=== PATIENT | male | born 1990 | race Caucasian/White ===

== ENCOUNTER 2018-03-10 09:43 | Emergency (ER) | payer SELFPAY ==
[2018-03-10] MEDS ORDERED: Albuterol/Ipratropium 3.0-0.5 MG/3 ML Neb Soln NEB ONE ×2 (09:58→10:34)
[2018-03-10] MEDS ORDERED: methylPREDNISolone Sodium Succinate 125 MG/2 ML SDV IM ONE (10:08)
--- NOTE | 2018-03-10 10:14 | EDM.PDOC ---
ED HPI GENERAL MEDICAL PROBLEM - General Chief Complaint: Respiratory Problem Stated Complaint: TROUBLE BREATHING Time Seen by Provider: 03/10/18 10:08 Source of Information: Reports: Patient History Limitations: Reports: No Limitations - History of Present Illness INITIAL COMMENTS - FREE TEXT/NARRATIVE: HISTORY AND PHYSICAL: []27-year-old male presents with asthma exacerbation History of Present Illness: []He does not having any of his inhalers Review of Systems: As per history of present illness and below otherwise all systems reviewed and negative. Past medical history: As per history of present illness and as reviewed below otherwise noncontributory. Surgical history: As per history of present illness and as reviewed below otherwise noncontributory. Social history: No reported history of drug or alcohol abuse. Family history: As per history of present illness and as reviewed below otherwise noncontributory. Physical exam: HEENT: Atraumatic, normocehpalic, pupils reactive, negative for conjunctival pallor or scleral icterus, mucous membranes moist, throat clear, neck supple, nontender, trachea midline. Lungs: Clear to auscultation, breath sounds equal bilaterally, chest non tender. Heart: S1S2, regular, negative for clicks, rubs, or JVD. Abdomen: Soft, nondistended, nontender. Negative for masses or hepatossplenmegaly. Negative for costovertebral tenderness. Pelvis: Stable nontender. Genitourinary: Deferred. Rectal: Deferred Extremities: Atraumatic, negative for cords or calf pain. Neurovascular unremarkable. Neuro: Awake, alert, oriented. Cranial nerves II through XII unremarkable. Cerebellum unremarkable. Motor and sensory unremarkable throughout. Exam nonfocal. Discussed with the patient that chest x-rays clear, asthma exacerbation Diagnostics: []Chest x-ray Therapeutics: []DuoNeb 2 Solu-Medrol IM Impression: []Asthma exacerbation Plan: []Discharged home Follow up with your primary care provider in 3 days Medrol Dosepak Combivent inhaler Return to the emergency room as directed and discussed Definitive disposition and diagnosis as appropriate pending reevaluation and review of above. Onset: Today, Sudden - Related Data Allergies Allergy/AdvReac Type Severity Reaction Status Date / Time amoxicillin Allergy Rash Verified 03/10/18 09:48 Home Meds: Home Meds Ipratropium/Albuterol Sulfate [Combivent Respimat Inhal [place]] 4 gm IH QID #1 aer.w.adap 03/10/18 [Rx] methylPREDNISolone [Medrol] 4 mg PO ASDIRECTED #1 dosepk 03/10/18 [Rx] Past Medical History Respiratory History: Reports: Asthma - Infectious Disease History Infectious Disease History: Reports: Herpes - Past Surgical History Neurological Surgical History: Reports: Other (See Below) Other Neurological Surgeries/Procedures: craniotomy Dermatological Surgical History: Reports: Other (See Below) Social & Family History - Family History Family Medical History: Noncontributory - Tobacco Use Smoking Status *Q: Former Smoker Used Tobacco, but Quit: Yes Month/Year Tobacco Last Used: feb 2018 - Caffeine Use Caffeine Use: Reports: None - Recreational Drug Use Recreational Drug Use: Yes Drug Use in Last 12 Months: Yes Recreational Drug Type: Reports: Marijuana/Hashish Recreational Drug Use Frequency: Not Used In Over 2 Months ED ROS GENERAL - Review of Systems Review Of Systems: ROS reveals no pertinent complaints other than HPI. ED EXAM, GENERAL - Physical Exam Exam: See Below (see dictation) Course - Vital Signs Last Recorded V/S: Last Vital Signs Temp 36.5 C 03/10/18 09:46 Pulse 72 03/10/18 09:46 Resp 22 H 03/10/18 09:46 BP 124/74 03/10/18 09:46 Pulse Ox 98 03/10/18 09:46 - Orders/Labs/Meds Orders: Active Orders 24 hr Category Date Time Status RT Aerosol Therapy [RC] ASDIRECTED Care 03/10/18 09:58 Active RT Aerosol Therapy [RC] ASDIRECTED Care 03/10/18 10:34 Active Chest 2V [CR] Stat Exams 03/10/18 10:01 Taken Meds: Medications Discontinued Medications Generic Name Dose Route Start Last Admin Trade Name Freq PRN Reason Stop Dose Admin Albuterol/Ipratropium 3 ml 03/10/18 09:58 03/10/18 10:04 Duoneb 3.0-0.5 Mg/3 Ml NEB 03/10/18 09:59 3 ml ONETIME ONE Administration Albuterol/Ipratropium 3 ml 03/10/18 10:34 03/10/18 10:40 Duoneb 3.0-0.5 Mg/3 Ml NEB 03/10/18 10:35 3 ml ONETIME ONE Administration Methylprednisolone Sodium Succinate 125 mg 03/10/18 10:08 03/10/18 10:13 Solu-Medrol IM 03/10/18 10:09 125 mg ONETIME ONE Administration Departure - Departure Time of Disposition: 10:57 Disposition: Home, Self-Care 01 Condition: Good Clinical Impression: Exacerbation of asthma Qualifiers: Asthma severity: moderate Asthma persistence: unspecified Qualified Code(s): J45.901 - Unspecified asthma with (acute) exacerbation - Discharge Information *PRESCRIPTION DRUG MONITORING PROGRAM REVIEWED*: Not Applicable *COPY OF PRESCRIPTION DRUG MONITORING REPORT IN PATIENT RICARDO: Not Applicable Prescriptions: Ipratropium/Albuterol Sulfate [Combivent Respimat Inhal [place]] 4 gm IH QID #1 aer.w.adap methylPREDNISolone [Medrol] 4 mg PO ASDIRECTED #1 dosepk Forms: ED Department Discharge Additional Instructions: The following information is given to patients seen in the emergency department who are being discharged to home. This information is to outline your options for follow-up care. We provide all patients seen in our emergency department with a follow-up referral. The need for follow-up, as well as the timing and circumstances, are variable depending upon the specifics of your emergency department visit. If you don't have a primary care physician on staff, we will provide you with a referral. We always advise you to contact your personal physician following an emergency department visit to inform them of the circumstance of the visit and for follow-up with them and/or the need for any referrals to a consulting specialist. The emergency department will also refer you to a specialist when appropriate. This referral assures that you have the opportunity for followup care with a specialist. All of these measure are taken in an effort to provide you with optimal care, which includes your followup. Under all circumstances we always encourage you to contact your private physician who remains a resource for coordinating your care. When calling for followup care, please make the office aware that this follow-up is from your recent emergency room visit. If for any reason you are refused follow-up, please contact the [facility] emergency department at and asked to speak to the emergency department charge nurse. Discharged home Follow up with your primary care provider in 3 days Medrol Dosepak Combivent inhaler Return to the emergency room as directed and discussed - My Orders Last 24 Hours: My Active Orders 03/10/18 10:01 Chest 2V [CR] Stat 03/10/18 10:34 RT Aerosol Therapy [RC] ASDIRECTED - Assessment/Plan Last 24 Hours: My Active Orders 03/10/18 10:01 Chest 2V [CR] Stat 03/10/18 10:34 RT Aerosol Therapy [RC] ASDIRECTED
--- NOTE | 2018-03-11 13:08 | CR ---
EXAM DATE: 03/10/18 PATIENT'S AGE: 27 Patient: AMY PERERA Facility: [place], [place] Site . Site : 1990 Study: XRay Chest [id number] 10:28:19 AM Ordering Physician: Doctor Ni Final Report: INDICATION: asthma exacerbation since last night INDICATION: Asthma exacerbation. TECHNIQUE: Chest 2 views. COMPARISON: None FINDINGS: Cardiovascular and mediastinum: Heart size and vasculature are normal in caliber and appearance. Mediastinum is within normal limits. Lungs and pleural spaces: Lungs are clear. No sign of infiltrate or mass. No sign of pleural effusion. No pneumothorax. Bones and soft tissues: No significant findings. IMPRESSION: Lungs are clear. Dictated by Toño Vinson MD @ 03/10/2018 10:34:20 AM Dictated by: Toño Vinson MD @ 03/10/2018 10:34:27 (Electronic Signature) Report Signed by Proxy. NICOLE
== END 2018-03-10 11:12 | disposition home or self-care (01) ==
LOC: MW.ED 09:43
DX: J45.901 Unspecified asthma with (acute) exacerbation (principal); Z87.891 Personal history of nicotine dependence
CPT/HCPCS: 71046; 94640; 96372; 99285; J2930; J7620-GY

== ENCOUNTER 2019-05-23 18:13 | Emergency (ER) | payer OTHER ==
--- NOTE | 2019-05-23 18:23 | EDM.PDOC ---
ED HPI GENERAL MEDICAL PROBLEM - General Chief Complaint: Upper Extremity Injury/Pain Stated Complaint: RT POINTING FINGER Time Seen by Provider: 05/23/19 18:15 - History of Present Illness INITIAL COMMENTS - FREE TEXT/NARRATIVE: HISTORY AND PHYSICAL: History of present illness: Patient is 29-year-old white male presents status post fall she injured the second digit of his right hand he also sustained a minor abrasion is up-to-date on his tetanus denies other trauma or concern patient requests x-raying about possible fracture of the second digit Review of systems: As per history of present illness and below otherwise all systems reviewed and negative. Past medical history: As per history of present illness and as reviewed below otherwise noncontributory. Surgical history: As per history of present illness and as reviewed below otherwise noncontributory. Social history: No reported history of drug or alcohol abuse. Family history: As per history of present illness and as reviewed below otherwise noncontributory. Physical exam: HEENT: Atraumatic, normocephalic, pupils reactive, negative for conjunctival pallor or scleral icterus, mucous membranes moist, throat clear, neck supple, nontender, trachea midline. Lungs: Clear to auscultation, breath sounds equal bilaterally, chest nontender. Heart: S1S2, regular, negative for clicks, rubs, or JVD. Abdomen: Soft, nondistended, nontender. Negative for masses or hepatosplenomegaly. Negative for costovertebral tenderness. Pelvis: Stable nontender. Genitourinary: Deferred. Rectal: Deferred. Extremities: Second digit right hand has minor abrasion noted on the dorsal aspect he does have tenderness and swelling in the region of the PIP joint is no gross deformity neurovascular exam in [facility] is unremarkable Neuro: Awake, alert, oriented. Cranial nerves II through XII unremarkable. Cerebellum unremarkable. Motor and sensory unremarkable throughout. Exam nonfocal. Diagnostics: X-ray right hand attention second digit Therapeutics: Aluminum/foam splint second digit Impression: #1 acute right hand injury ( second digit) Definitive disposition and diagnosis as appropriate pending reevaluation and review of above. - Related Data Allergies Allergy/AdvReac Type Severity Reaction Status Date / Time amoxicillin Allergy Rash Verified 03/10/18 09:48 Home Meds: Home Meds . [No Known Home Meds] 05/23/19 [History] Past Medical History Respiratory History: Reports: Asthma - Infectious Disease History Infectious Disease History: Reports: Herpes - Past Surgical History Neurological Surgical History: Reports: Other (See Below) Other Neurological Surgeries/Procedures: craniotomy Dermatological Surgical History: Reports: Other (See Below) Social & Family History - Family History Family Medical History: Noncontributory - Caffeine Use Caffeine Use: Reports: None Review of Systems - Review of Systems Review Of Systems: Comprehensive ROS is negative, except as noted in HPI. ED EXAM, GENERAL - Physical Exam Exam: See Below (See dictation) Course - Vital Signs Last Recorded V/S: Last Vital Signs Temp 37.1 C 05/23/19 18:18 Pulse 77 05/23/19 18:18 Resp 14 05/23/19 18:18 BP 130/64 05/23/19 18:18 Pulse Ox 99 05/23/19 18:18 Departure - Departure Time of Disposition: 18:57 Disposition: Home, Self-Care 01 Condition: Good Clinical Impression: Hand injury - Discharge Information Referrals: PCP,Not In Area [Primary Care Provider] - Forms: ED Department Discharge Additional Instructions: The following information is given to patients seen in the emergency department who are being discharged to home. This information is to outline your options for follow-up care. We provide all patients seen in our emergency department with a follow-up referral. The need for follow-up, as well as the timing and circumstances, are variable depending upon the specifics of your emergency department visit. If you don't have a primary care physician on staff, we will provide you with a referral. We always advise you to contact your personal physician following an emergency department visit to inform them of the circumstance of the visit and for follow-up with them and/or the need for any referrals to a consulting specialist. The emergency department will also refer you to a specialist when appropriate. This referral assures that you have the opportunity for followup care with a specialist. All of these measure are taken in an effort to provide you with optimal care, which includes your followup. Under all circumstances we always encourage you to contact your private physician who remains a resource for coordinating your care. When calling for followup care, please make the office aware that this follow-up is from your recent emergency room visit. If for any reason you are refused follow-up, please contact the [facility] emergency department at and asked to speak to the emergency department charge nurse. Aluminum/foam splint as directed Motrin/Tylenol as directed follow-up private medical doctor as needed as discussed and return as needed as discussed
--- NOTE | 2019-05-23 18:44 | CR ---
TECHNIQUE: Three views of the right hand. INDICATION: Fall, 2nd digit pain and swelling. FINDINGS: No acute right hand fracture, dislocation, or radiopaque foreign body. There is soft tissue swelling in the right index finger. Chronic fracture deformity 5th metacarpal shaft. Dictated by Jimbo Gillespie MD @ 05/23/2019 6:42:00 PM Dictated by: Jimbo Gillespie MD @ 05/23/2019 18:42:06 (Electronically Signed)
== END 2019-05-23 19:11 | disposition home or self-care (01) ==
LOC: MW.ED 18:13
DX: S60.511A Abrasion of right hand, initial encounter (principal); Z88.1 Allergy status to other antibiotic agents; W19.XXXA Unspecified fall, initial encounter
CPT/HCPCS: 73130-26-RT; 73130-RT; 99282; 99283-25

== ENCOUNTER 2020-08-18 20:07 | Emergency (ER) | payer OTHER ==
[2020-08-18] MEDS ORDERED: Clindamycin HCl 150 MG Cap PO ONE (20:26)
[2020-08-18] MEDS ORDERED: Lidocaine 2% Viscous Solution 15 ML Cup PO ONE (20:26)
[2020-08-18] MEDS: Benzocaine 20% Topical Spray UD MUCMEM ONE (20:36)
--- NOTE | 2020-08-18 20:37 | EDM.PDOC ---
ED HPI GENERAL MEDICAL PROBLEM - General Chief Complaint: ENT Problem Stated Complaint: TOOTH PAIN Time Seen by Provider: 08/18/20 20:19 Source of Information: Reports: Patient History Limitations: Reports: No Limitations - History of Present Illness INITIAL COMMENTS - FREE TEXT/NARRATIVE: HISTORY AND PHYSICAL: History of present illness: Patient is a 30-year-old male who presents to the emergency room with complaints of upper right posterior dental pain. He states he has had a longstanding cavity which he has been meaning to see a dentist for. Over the past few weeks he has had increased pain, last few days he is noticed some redness and tenderness along the upper gumline. Patient denies any fever, chills, headache, change in vision, syncope or near syncope. Denies any chest pain, back pain, shortness of breath or cough. Denies any GI or symptoms. Patient has been eating and drinking appropriately. Review of systems: As per history of present illness and below otherwise all systems reviewed and negative. Past medical history: As per history of present illness and as reviewed below otherwise noncontributory. Surgical history: As per history of present illness and as reviewed below otherwise noncontributory. Social history: See social history for further information Family history: As per history of present illness and as reviewed below otherwise noncontributory. Physical exam: General: Well developed and well nourished. Alert and orientated x 3. Nontoxic in appearance and in no acute distress. Vital signs are stable and have been reviewed by me. Nursing notes were reviewed. HEENT: Atraumatic, normocephalic, pupils equal and reactive bilaterally, negative for conjunctival pallor or scleral icterus, mucous membranes moist, dental decay noted to the upper right posterior molar with mild redness along the gumline. No drainable absces noted. TMs normal bilaterally, throat clear, neck supple, nontender, trachea midline. No drooling or trismus noted. No meningeal signs. No hot potato voice noted. Lungs: Clear to auscultation bilaterally. No wheezes, rales, or rhonchi. Normal work of breathing, no accessory muscles used. Heart: S1S2, regular rate and rhythm without overt murmur, gallops, or rubs. No JVD. No peripheral edema Hematologic: No petechiae or purpra. Mucosa appropriate color and normal nail bed color and refill. Extremities: Atraumatic, moves all extremities per self without difficulty or deficits. Neurovascular unremarkable. Neuro: Awake, alert, oriented. Cranial nerves II through XII unremarkable. Cerebellum unremarkable. Motor and sensory unremarkable throughout. Exam nonfocal. Psychiatric: Mood and affect are appropriate. Normal thought process. Answering questions appropriately. Notes: *This patient was seen and evaluated during the 2019 SARS-CoV-2 novel coronavirus pandemic period. Community viral transmission is ongoing at time of this encounter and the emergency department is operating under pandemic response procedures. PCN and Amoxicillin allergy. I have talked with the patient about today's findings, in addition to providing specific details for plan of care. We discussed the importance of following up with a dentist for definitive care. The patient is stable for discharge, counseling was provided and we discussed in great detail signs and symptoms that would prompt them to return to the Emergency Department. Medication, follow up and supportive care measures were reviewed and discussed. Voices understanding and is agreeable to plan of care. Denies any further questions or concerns at this time. Diagnostics: None Therapeutics: Clindamycin, Dental Balls Prescription: Clindamycin Impression: Dental abscess Plan: 1. Please take the antibiotic as prescribed. 2. Tylenol and/or ibuprofen as needed for pain management. "Tooth Balls" have been given to you; apply along the gumline every 2-3 hours as needed. Do not swallow these; external use only. 3. Follow-up with a dentist for definitive care. Return to the ED as needed and as discussed. Definitive disposition and diagnosis as appropriate pending reevaluation and review of above. R upper tooth Pain Score (Numeric/FACES): 8 - Related Data Allergies Allergy/AdvReac Type Severity Reaction Status Date / Time amoxicillin Allergy Rash Verified 08/18/20 20:19 Home Meds: Home Meds Acetaminophen/HYDROcodone [[place] 325-5 MG] 1 - 2 tab PO Q4H #20 tablet 08/18/20 [Rx] Clindamycin HCl 300 mg PO TID 7 Days #21 capsule 08/18/20 [Rx] Past Medical History Respiratory History: Reports: Asthma Other Musculoskeletal History: broken fingers - Infectious Disease History Infectious Disease History: Reports: Chicken Pox, Herpes - Past Surgical History Neurological Surgical History: Reports: Other (See Below) Other Neurological Surgeries/Procedures: craniotomy- football accident Dermatological Surgical History: Reports: Other (See Below) Social & Family History - Family History Family Medical History: No Pertinent Family History - Caffeine Use Caffeine Use: Reports: Coffee, Energy Drinks - Recreational Drug Use Recreational Drug Type: Reports: Marijuana/Hashish ED ROS ENT - Review of Systems Review Of Systems: Comprehensive ROS is negative, except as noted in HPI. ED EXAM, ENT - Physical Exam Exam: See Below (See dictation) Course - Vital Signs Last Recorded V/S: Last Vital Signs Temp 98.1 F 08/18/20 20:19 Pulse 78 08/18/20 20:19 Resp 18 08/18/20 20:19 BP 107/65 08/18/20 20:19 Pulse Ox 97 08/18/20 20:19 - Orders/Labs/Meds Meds: Medications Discontinued Medications Generic Name Dose Route Start Last Admin Trade Name Freq PRN Reason Stop Dose Admin Benzocaine 1 each 08/18/20 20:26 Hurricaine One 20% MUCMEM 08/18/20 20:27 ONETIME ONE Clindamycin HCl 300 mg 08/18/20 20:26 Cleocin PO 08/18/20 20:27 ONETIME ONE Lidocaine HCl 15 ml 08/18/20 20:26 Xylocaine 2% Viscous PO 08/18/20 20:27 ONETIME ONE Departure - Departure Time of Disposition: 20:36 Disposition: Home, Self-Care 01 Clinical Impression: Dental abscess - Discharge Information Prescriptions: Clindamycin HCl 300 mg PO TID 7 Days #21 capsule Acetaminophen/HYDROcodone [[place] 325-5 MG] 1 - 2 tab PO Q4H #20 tablet Instructions: Dental Abscess, [id number] Referrals: PCP,None [Primary Care Provider] - Additional Instructions: The following information is given to patients seen in the emergency department who are being discharged to home. This information is to outline your options for follow-up care. We provide all patients seen in our emergency department with a follow-up referral. The need for follow-up, as well as the timing and circumstances, are variable depending upon the specifics of your emergency department visit. If you don't have a primary care physician on staff, we will provide you with a referral. We always advise you to contact your personal physician following an emergency department visit to inform them of the circumstance of the visit and for follow-up with them and/or the need for any referrals to a consulting specialist. The emergency department will also refer you to a specialist when appropriate. This referral assures that you have the opportunity for follow-up care with a specialist. All of these measure are taken in an effort to provide you with optimal care, which includes your follow-up. Under all circumstances we always encourage you to contact your private physician who remains a resource for coordinating your care. When calling for follow-up care, please make the office aware that this follow-up is from your recent emergency room visit. If for any reason you are refused follow-up, please contact the [facility] Emergency Department at and asked to speak to the emergency department charge nurse. [facility] [address] [place] [id number] [place] [address] Thank you for choosing the [facility] emergency department in [place] for your medical needs today. It was a pleasure caring for you. Today you were seen in the emergency department for dental pain. 1. Please take the antibiotic as prescribed. 2. Tylenol and/or ibuprofen as needed for pain management. "Tooth Balls" have been given to you; apply along the gumline every 2-3 hours as needed. Do not swallow these; external use only. 3. Follow-up with a dentist for definitive care. Return to the ED as needed and as discussed. Sepsis Event Note (ED) - Evaluation Sepsis Screening Result: No Definite Risk - Focused Exam Vital Signs: Vital Signs Temp Pulse Resp BP Pulse Ox 08/18/20 20:19 98.1 F 78 18 107/65 97
== END 2020-08-18 20:42 | disposition home or self-care (01) ==
LOC: MW.ED 20:07
DX: K04.7 Periapical abscess without sinus (principal); K02.9 Dental caries, unspecified; J45.909 Unspecified asthma, uncomplicated; Z88.0 Allergy status to penicillin
CPT/HCPCS: 99282; A9270; 99283

== ENCOUNTER 2022-02-05 21:32 | Emergency (ER) | payer OTHER ==
[2022-02-05] MEDS ORDERED: Lidocaine 1% 5 ML VIAL INJECT ONE (22:26)
[2022-02-05] MEDS ORDERED: Octyl 2-Cyanoacrylate 1 g/1 mL 1 APPLIC PEN TOP ONE ×2 (22:30→23:13)
[2022-02-05] MEDS ORDERED: Octyl 2-Cyanoacrylate 1 g/1 mL 1 APPLIC PEN ONE (23:12)
[2022-02-05] MEDS ORDERED: Cephalexin 500 MG Cap PO ONE (23:21)
[2022-02-05] MEDS ORDERED: Ibuprofen 600 MG Tab PO ONE (23:21)
== END 2022-02-05 23:29 | disposition home or self-care (01) ==
LOC: MW.ED 21:32
DX: S61.112A Laceration without foreign body of left thumb with damage to nail, initial encounter (principal); Z88.0 Allergy status to penicillin; W26.0XXA Contact with knife, initial encounter
CPT/HCPCS: 12002; 73140; 99283; A9270

== ENCOUNTER 2022-08-24 15:58 | Emergency (ER) | payer OTHER ==
[2022-08-24] MEDS ORDERED: Albuterol/Ipratropium 3.0-0.5 MG/3 ML Neb Soln NEB ONE (16:07)
[2022-08-24] MEDS ORDERED: methylPREDNISolone Sodium Succinate 125 MG/2 ML SDV IM ONE (16:14)
== END 2022-08-24 16:59 | disposition home or self-care (01) ==
LOC: MW.ED 15:58
DX: J45.901 Unspecified asthma with (acute) exacerbation (principal); Z88.0 Allergy status to penicillin; Z79.899 Other long term (current) drug therapy
CPT/HCPCS: 96372; 99284; J2930; J7620-GY